=== PATIENT | female | born 1965 | race Caucasian/White ===

== ENCOUNTER → 2021-03-05 | Outpatient (CLI) | payer BC | LOC: MRI 12:08 | PROVIDERS: ATTEND Family Medicine | DX: I67.82 Cerebral ischemia (principal); G43.C1 Periodic headache syndromes in child or adult, intractable; G47.01 Insomnia due to medical condition ==

== ENCOUNTER → 2021-03-11 | Outpatient (CLI) | payer BC | LOC: ULTRA 11:01 | PROVIDERS: ATTEND Family Medicine | DX: R16.0 Hepatomegaly, not elsewhere classified (principal); K76.0 Fatty (change of) liver, not elsewhere classified; R74.8 Abnormal levels of other serum enzymes ==